=== PATIENT | female | born 1950 | race Caucasian/White ===

== ENCOUNTER 2025-02-28 08:22 | Outpatient (AMB) | payer MEDICARE, BC, SELFPAY ==
--- NOTE | 2025-02-28 08:33 | MHC.OFFVIS ---
Intake Visit Reasons: 6m sz Accompanied by: Spouse Allergies No Known Allergies Allergy (Verified 02/28/25 08:37) Medication List - Last Reconciled 02/28/25 by Pepper Sierra CNP apixaban (Eliquis) 5 mg PO BID atorvastatin 20 mg PO DAILY hydrochlorothiazide 12.5 mg PO DAILY lamotrigine 25 mg PO BID 90 days lisinopril 20 mg PO DAILY metoprolol tartrate 12.5 mg PO DAILY HPI Comments Details: 74-year-old [place] woman, Karina, with h/o multiple seizures causing generalized convulsions in her 20s who was seen for seizure disorder. She was doing okay. She was taking lamotrigine twice a day, no medication side effects. No further spells. Sleep was okay. Mood was okay. She had one fall in 10/2024 when she tripped on uneven ground when visiting her daughter in [place]. [facility] Medical History (Updated 02/28/25 @ 08:36 by Pepper Sierra CNP) Cerebral microvascular disease Anxiety Seizure disorder Review of Systems Const Denies chills, Denies daytime sleepiness, Reports difficulty sleeping, Denies fatigue, Denies fever(s), Denies frequent falls, Denies headache(s), Denies increased appetite, Denies poor appetite, Denies snoring, Denies weakness, Denies weight gain and Denies weight loss Eyes Denies loss of vision ENT Denies vertigo, Denies dizziness and Denies headache(s) Card Denies chest pain at rest, Denies chest pain with activity, Denies syncope, Denies leg edema and Denies palpitations Resp Denies snoring GI Denies constipation, Denies heartburn, Denies diarrhea and Denies nausea Denies urinary frequency, Denies urinary incontinence and Denies urinary urgency Musc Denies abnormal gait, Denies numbness and Denies tingling Skin/Breast Denies dry skin and Denies rash Neuro Denies abnormal gait, Denies vertigo, Denies dizziness, Denies syncope, Denies frequent falls, Denies headache(s), Denies lack of coordination, Denies loss of vision, Denies memory loss, Denies numbness, Denies restless legs, Denies seizure-like activity, Denies tingling, Denies paresthesias, Denies tremor(s) and Denies weakness Psych Denies anxiety, Denies depression, Denies auditory hallucinations, Denies memory loss, Denies visual hallucinations and Denies suicidal ideation Endo Denies fatigue and Denies palpitations Physical Exam Const Other: General Appearance:? normal, in no acute distress. Skin:? no rashes, no significant birthmarks. Heart:? S1, S2 normal, no murmurs. Lungs:? clear anteriorly and posteriorly. Extremities:? no edema. Psych:? alert, oriented, cognitive function intact, cooperative with exam. Neuro Other: Mental Status:?Normal attention, orientation, memory and affect.? Cranial Nerves:?Pupils are equal, round and reactive to light. External occular muscles are intact. Visual feliciano are full. Face is symmetrical. Facial sensations are normal. Tongue is midline. Palate elevates symmetrically. Shoulder shrugging is normal. Hearing to bedside conversation is normal. Sensory Exam:?....? Coordination:?No ataxia,?no titubation.? Gait Exam: Within normal limits. Extrapyramidal System:?No tremor, rigidity with normal facial expressions.? Pronator Drift:?Not present.? Involuntary Movements:?No tremors seen.? Speech:?Normal.? Results Reviewed Results Reviewed: 48 hr EEG at [facility] in Nov 2022: ab[facility] with b/l sharps [facility]: Diff DJD CT brain WO at [facility] in September 2022: No acute lesion, mod MVD CTA brain at [facility] in September 2022: No acute lesion or vascular stenosis MRI brain WO at [facility] in September 2022: No acute lesion, mod MVD EEG at [facility] in September 2022: WNL Assessment & Plan Assessment & Plan (1) Seizure disorder: Code(s): G40.909 - Epilepsy, unspecified, not intractable, without status epilepticus Category: Medical Plan: Continue lamotrigine 25mg 1 tablet twice a day. Follow up in 6 months or sooner as needed. (2) Cerebral microvascular disease: Code(s): I67.89 - Other cerebrovascular disease Category: Medical Plan . Coding Level of Care Code Est Pt Level 4 (03169) Diagnoses Seizure disorder G40.909 Cerebral microvascular disease I67.89
== END 2025-02-28 08:44 | disposition home or self-care (01) ==
LOC: HO.HSM 08:23
PROVIDERS: PCP Family Medicine; Referring Provider Family Medicine; Visit Provider Registered Nurse
DX: G40.909 Epilepsy, unspecified, not intractable, without status epilepticus (principal); I67.89 Other cerebrovascular disease
CPT/HCPCS: 99214

== ENCOUNTER → 2025-02-28 08:22 | Outpatient (BNVA) | payer MEDICARE, BC, SELFPAY | PROVIDERS: PCP Family Medicine; Referring Provider Family Medicine; Visit Provider Registered Nurse | DX: G40.909 Epilepsy, unspecified, not intractable, without status epilepticus (principal); I67.89 Other cerebrovascular disease | CPT/HCPCS: 99212 ==